=== PATIENT | male | born 1975 | race Caucasian/White ===

== ENCOUNTER → 2018-03-28 | Outpatient (REF) | payer OTHER ==
--- NOTE | 2018-03-29 02:56 | REP ---
Clinical: thoracic pain with recent trauma/fall . Technique: AP, lateral, and swimmers views. Findings: Alignment and kyphosis is maintained. Vertebral bodies intact. No acute fracture / compression injury or subluxation. No degenerative changes. Paravertebral soft tissues are normal. Impression: Normal thoracic spine series. Electronically Signed by Negrito Botello MD 03/29/2018 02:48 A
--- NOTE | 2018-03-29 03:11 | REP ---
Clinical: Trauma. Fall. Technique: AP, lateral, bilateral oblique views left foot . Findings: There is a subtle intra-articular corner fracture along the medial base of the fifth toe proximal phalanx at the metatarsophalangeal joint. Remainder examination appears normal. Impression: Intra-articular corner fracture at the base of the fifth proximal phalanx involving the MTP joint. Electronically Signed by Negrito Botello MD 03/29/2018 03:03 A
--- NOTE | 2018-03-29 03:19 | REP ---
Clinical: Trauma. Fall . Technique: AP, lateral, bilateral oblique, and coned-down views. Findings: Alignment and lordosis is maintained. The vertebral bodies including transverse process and spinous processes are intact and normal. There is no evidence for acute fracture / compression injury or subluxation. No evidence for spondylolysis or spondylolisthesis. No significant degenerative change is noted. Impression: Normal lumbosacral spine radiograph series. Electronically Signed by Negrito Botello MD 03/29/2018 03:10 A
== END ==
LOC: M RAD 10:39 → EDSTATUS 04-12 09:44
PROVIDERS: ATTEND Physician Assistant
DX: M79.672 Pain in left foot (principal); S92.355A Nondisplaced fracture of fifth metatarsal bone, left foot, initial encounter for closed fracture; W19.XXXA Unspecified fall, initial encounter; Y92.9 Unspecified place or not applicable

== ENCOUNTER → 2019-04-08 | Outpatient (REF) | payer OTHER | LOC: M LAB REF 09:30 | PROVIDERS: ATTEND Dermatology | DX: D48.9 Neoplasm of uncertain behavior, unspecified (principal) | CPT/HCPCS: 11102; 11103; 88305; G0463 ==

== ENCOUNTER → 2020-08-20 | Outpatient (CLI) | payer OTHER ==
--- NOTE | 2020-08-20 13:01 | REP ---
INDICATION: PAIN LT SHOULDER. COMPARISON: None. TECHNIQUE: Coronal oblique T1, T2 fat sat, sagittal oblique T2 fat sat, axial T2 fat sat, gradient echo. FINDINGS: Rotator cuff: Mild supraspinatus tendinopathy/tendinitis. There is no rotator cuff tear. Acromioclavicular joint: There are mild hypertrophic degenerative changes of the acromioclavicular joint. Acromion: Type 1 Biceps Tendon: In bicipital groove, no tenosynovitis. Hill Sach's deformity: None. Deltoid muscle: No abnormal signal. Biceps labral complex: Intact. Labrum: No tear. Cartilage: No defects. Bone marrow: There is no bone marrow edema or occult fracture. There is a subcentimeter subcortical cyst in the distal clavicle. Joint fluid: No effusion. IMPRESSION: Mild supraspinatus tendinopathy/tendinitis. No rotator cuff tear or labral tear. Mild hypertrophic degenerative changes acromioclavicular joint. <Electronically signed by Bob Lara > 08/20/20 [id number]
== END ==
LOC: M PLARAD 12:00
PROVIDERS: ATTEND Nurse Practitioner Primary Care
DX: M75.22 Bicipital tendinitis, left shoulder (principal)